=== PATIENT | female | born 1990 | race Caucasian/White ===

== ENCOUNTER 2023-01-24 08:46 | Outpatient (CLI) | payer OTHER, SELFPAY | END 2023-01-24 08:47 | disposition home or self-care (01) | LOC: NFLDREF 08:46 | PROVIDERS: Visit Provider Registered Nurse | DX: R39.15 Urgency of urination (principal) | CPT/HCPCS: 87086 ==

== ENCOUNTER 2023-02-12 13:51 | Outpatient (CLI) | payer OTHER, SELFPAY ==
--- NOTE | 2023-02-12 14:00 | CRLHL7_ITS ---
For Patients: As a result of the Century Cures Act, medical imaging exams and procedure reports are released immediately into your electronic medical record. You may view this report before your referring provider. If you have questions, please contact your health care provider. INDICATION: 32 year-old female. Pelvic pain and pelvic pressure. TECHNIQUE: Transvaginal pelvic ultrasound. Grayscale and color spectral Doppler waveform analysis of the ovaries was performed. FINDINGS: Normal-appearing uterus measuring 7.7 x 3.9 x 4.9 cm. No myometrial mass. Normal endometrial stripe of 3.3 mm. Minimal free pelvic fluid in the cul-de-sac likely physiologic. The right ovary measures 3.4 x 1.5 x 2.3 cm. Blood flow is documented in the right ovary both arterial and venous. The left ovary measures 2.1 x 1.2 x 1.9 cm. Blood flow is documented in the left ovary both arterial and venous. No ovarian torsion. Few ovarian follicles. IMPRESSION: Normal transvaginal pelvic ultrasound. Dictated by Matthew Alcantara MD @ 02/14/2023 11:25:59 AM (Electronically Signed)
== END 2023-02-12 13:52 | disposition home or self-care (01) ==
LOC: US 13:52
PROVIDERS: Visit Provider Physician Assistant
DX: R10.2 Pelvic and perineal pain (principal)
CPT/HCPCS: 76830; 76856; 93976

== ENCOUNTER 2023-07-13 15:45 | Outpatient (CLI) | payer OTHER, SELFPAY ==
--- OUTSIDE RECORDS SUMMARY | 2023-07-13 15:48 | XMS_ITS | Clinical Summary ---
Author Name Unknown Organization [facility] Address [place], [place] [address] Care Team Providers Care Cage Supervisor Name Role Phone Pcp, No Primary Care Provider Unavailabl e Allergies No known active allergies Medications Medication Sig Dispensed Refills Start Date End Date Status triamcinolone (ARISTOCORT; KENALOG) 0.1 % creamIndications:Herpe s zoster without complication Apply topically to affected area(s) 3 times daily. 80 g 08/11/2018 Active Active Problems Problem Noted Date Diagnosed Date No active medical problems 03/23/2011 Immunizations Name Administration Dates Next Due Diptheria Antitoxin 08/11/1993, 0,1988,1988, 1988 Hepatitis B (Peds) 10/26/2008,08/22/2000 Human Papilloma Virus Vaccine 04/05/2011, 010 Influenza, IIV3 (Age >=3 years) 02/16/2010,02/25 MMR 08/22/2000,07/06/1989 Polio Virus, Unspecified 08/11/1993,09/10/1989,0 1988,1988 Td (Age >=7 Years) 11/18/2003 Tdap 02/26/2008 Social History Tobacco Use Types Packs/Day Years Used Date Smoking Tobacco: Former Cigarettes Q uit: 08/26/2010 Smokeless Tobacco: Never Alcohol Use Standard Drinks/Week Comments Yes 0 (1 standard drink = 0.6 oz pur e alcohol) occasionally Sex and Gender Information Value Date Recorded Sex Assigned at Not on file Gender Identity Not on file Sexual Orientation Not on file Obstetrics History Last Filed Vital Signs Vital Sign Reading Time Taken Comments Blood Pressure 124/64 08/11/2018 2:45 PM CDT Pulse 71 08/11/2018 2:45 PM CDT Temperature 36.6 ??C (97.8 ??F) 08/11/2018 2:45 PM CD T Respiratory Rate 16 08/11/2018 2:45 PM CDT Oxygen Saturation 98% 08/11/2018 2:45 PM CDT Inhaled Oxygen Concentration - - Weight 81.6 kg (180 lb) 08/11/2018 2:45 PM CDT Height 170.2 cm (5' 7) 09/04/2016 11:33 AM CDT Body Mass Index 28.19 09/04/2016 11:33 AM CDT Plan of Treatment Health Maintenance Due Date Last Done Comments HIV for age 15-65 02/23/2003 Hepatitis C screening for age 18-79 02/23/2006 Depression screening for age 12+ 03/30/2017 03/30/2016 BMI (ht and wt on same day) for age 18+ 09/04/2017 09/04/2016, 03/30/2016 Tetanus booster 02/25/2018 02/26/2008, 11/18/2003 COVID-19 vaccine series (2022-24 season) 2022 Pap test for age 21-65 06/01/2023 , 05/31/2020, 08/10/2017, Additional history exists Influenza for age 9-49 11/18/2023 02/16/2010, 2007 Tdap Completed 02/26/2008 Pneumococcal series for age 6-64 Aged Out No longer eligible based on patient's age to complete this topic Procedures Procedure Name Priority Date/Time Associated Diagnosis Comments BILINGUAL SALES CONSULTANT THIN PREP PAP SCREEN IMAGED Routine 05/31/2020 10:00 AM CDT from Last 3 Months or Most Recently Relevant to Health Maintenance Results * BILINGUAL SALES CONSULTANT THIN PREP PAP SCREEN IMAGED (05/31/2020 10:00 AM CDT) Case Report Gynecologic Cytology Report ? Case: [id number] ? Authorizing Provider: ??Marissa Billings ??Collected: ? 05/31/2020 1000 ? M, MD ? Ordering Location: ? [facility] ?Received: ?06/01/2020 1400 ? First Screen: ?Ayana Arce ? Specimen: ?BILINGUAL SALES CONSULTANT ThinPrep Vial Screening, Cervical/Vaginal ? 06/08/2020 6:48 PM CDT [facility] INTERPRETATION/ RESULT NEGATIVE FOR INTRAEPITHELIAL LESION OR MALIGNANCY (NIL) (none) 06/08/2020 6:48 PM CDT [facility] NISM(S) Shift in veronika suggestive of bacterial vaginosis 06/08/2020 6:48 PM CDT [facility] SPECIMEN ADEQUACY Satisfactory for evaluation Endocervical component present 06/08/2020 6:48 PM CDT [facility] HPV REQUEST HPV and PAP 06/08/2020 6:48 PM CDT [facility] Date of LMP 03/25/2020 06/08/2020 6:48 PM CDT [facility] Last Pap Date 08/21/2017 06/08/2020 6:48 PM CDT [facility] Last Pap Result NIL 6:48 PM CDT [facility] Menstrual Status 06/08/2020 6:48 PM CDT [facility] Additional Information 06/08/2020 6:48 PM CDT [facility] Comment: Interpreted at [facility] - [address], [place] [address] Automated Review Successful 06/08/2020 6:48 PM CDT [facility] Comment:Specimen processed s uccessfully by automated melt house supervisor device, ThinPrep Imaging System, [employer] ANCILLARY TESTING BILINGUAL SALES CONSULTANT HPV Ordered, Please see separate report 06/08/2020 6:48 PM CDT [facility] Note The pap test is a screening technique, not a diagnostic procedure. It is used primarily to screen for squamous cancers and precursor lesions. Published studies have shown that it is subject to both false negative and false positive results. The pap test should not be used as the sole means to diagnose or exclude pre-malignant and malignant lesions. 06/08/2020 6:48 PM CDT [facility] Other (Cervical/Vagina l) 05/31/2020 10:00 AM CDT 06/01/2020 2:00 PM CDT Marissa Billings MD PATHOLOGY/ CYTOLOGY [facility] [address] [place] [address], [place] from Last 3 Months or Most Recently Relevant to Health Maintenance Care Teams Cage Supervisor Relationship Specialty Start Date End Date Pcp, No . PCP - General 06/01/10
[2023-07-13 18:53] LABS: Chlamydia DNA Amplified* NOT DETECTED (No Detected); GC DNA Amplified* NOT DETECTED (No Detected)
== END 2023-07-13 15:46 | disposition home or self-care (01) ==
PROVIDERS: Visit Provider Obstetrics & Gynecology
DX: Z11.3 Encounter for screening for infections with a predominantly sexual mode of transmission (principal); Z13.1 Encounter for screening for diabetes mellitus; Z13.220 Encounter for screening for lipoid disorders
CPT/HCPCS: 80061; 82947; 87491; 87591

== ENCOUNTER 2023-10-02 15:05 | Outpatient (CLI) | payer OTHER, SELFPAY ==
--- OUTSIDE RECORDS SUMMARY | 2023-10-02 15:08 | XMS_ITS | Patient Health Record ---
Author Organization [facility] Address [address] [place], [place] [id number] Care Team Providers Care Grease Packer Name Role Phone Nuha Bowens Primary Care Provider Unavail Josselin Berg Unavailable [phone] Allergies No Known Allergies Results Component Value Reference Range Notes BD Affirm Reviewed date:04/11/2023 02:44:14 PM Interpretation:Abnormal Performing Lab: Notes/Report: Abnormal Trichomoniasis NEG Negative - Bacterial Vaginosis POS Negative - Yeast NEG Negative - CULTURE, URINE, ROUTINE Reviewed date:02/19/2023 10:59:12 AM Interpretation:Normal Performing Lab:[facility], [facility] [id number] Yoandy Ng Notes/Report: CULTURE, URINE, ROUTINE SEE NOTE CULTURE, URINE, ROUTINE Micro Number: [id number] Test Status: Final Specimen Source: Urine, clean catch Specimen Quality: Adequate Result: No Growth BV/VAGINITIS PANEL DNA PROBE Reviewed date:02/19/2023 10:59:12 AM Interpretation:Abnormal Performing Lab:[facility], [facility], [id number] Yoandy Ng Notes/Report: TRICHOMONAS: NOT DETECTED NOT DETECTED GARDNERELLA: DETECTED NOT DETECTED in the absence of signs and symptoms of bacterial vaginosis. Increased levels of G. vaginalis may not be significant SYED: NOT DETECTED NOT DETECTED Urinalysis, Routine () Reviewed date:02/16/2023 04:10:19 PM Interpretation: Performing Lab: Notes/Report: Urine Color Yellow Yellow - Ifeoma Appearance Clear Clear - Glucose Neg Bilirubin Neg Ketone Neg Specific Basom 1.020 Blood Neg pH 5.5 Protein Neg Urobilinogen 0.2mg/dL Nitrite Neg Leukocytes Neg Reason For Referral Reason Referral for Urgency of Urination Sched 12.01 Diagnosis 1 Urgency of urination (R39.15) Referral Organization [facility] Referring Provider First Name Nuha Referring Provider Last Name Gogo Referring Provider Speciality Nurse Veto valera Referred Organization [facility] Referred Provider Josselin Rosas Referred Address [address] [place], [place],[address], Referred Provider Specialty Refuse Laborer and core man General Notes Daryl, Kaye 09:21:17 AM > Received referral from [facility] for Urgency of Urination Referral Priority Routine Medications Medication SIG (Take, Route, Frequency, Duration) Notes Start Date End Date Status Trimo-Murphy 0.025-0.01 % 2 gram Vaginal tw ice weekly for 90 days 04/10/2023 Active Clindamycin Phosphate 2 % 1 applicatorfu l at bedtime Vaginal Once a day for 7 days 04/11/2023 Active Social History Tobacco Use: Social History Observation Description Date Details (start date - stop date) Never Smoker NA - NA Tobacco Use/Smoking Question Answer Notes Are you a nonsmoker Alcohol Screen (Audit-C) Question Answer Notes Did you have a drink containing alcohol in the p ast year? Yes Points 0 Interpretation Negative Problems Problem Type SNOMED Code ICD Code Onset Dates Problem Status W/U Status Risk Notes Problem 215946330 Pessary maintenance (Z46.89) Active confirmed Problem 895639147 Fitting and adjustment of pessary (Z46.89) Active confirmed Problem 051374150 POP-Q stage 2 cystocele (N81.10) Active confirmed Problem 306642909 POP-Q stage 2 rectocele (N81.6) Active confirmed Problem Urinary frequency (057047969) Urinary frequency (R35.0) Active confirmed Improved 75-80% after treatment for bacterial vaginosis Problem 94818563 YVAN (stress urinary incontinence, female) (N39.3) Active confirmed Vital Signs Blood pressure diastolic 82 mm Hg 04/10/2023 Height 67 in 04/10/2023 Blood pressure systolic 118 mm Hg 04/10/2023 Weight 190.2 lbs 04/10/2023 BMI 29.79 kg/m2 04/10/2023 Encounters Encounter Location Date Provider Diagnosis [facility] [address] [place] [address] 02/16/2023 [facility] Vaginal discharge N89.8 and Urinary frequency R35.0 [facility] [address] [place] [address] 04/10/2023 [facility] Vaginal irritation N89.8 [facility] [address] [place] [address] 02/16/2023 [facility] POP-Q stage 2 cystocele N81.10 ; POP-Q stage 2 rectocele N81.6 ; Urinary frequency R35.0 ; Vaginal discharge N89.8 and Mild depression F32.A [address] [place] [address] 03/20/2023 [facility] Fitting and adjustme nt of pessary Z46.89 ; POP-Q stage 2 cystocele N81.10 and POP-Q stage [address] [address] 04/10/2023 [facility] Pessary maintenance Z46.89 and Vaginal discharge N89.[address] [place] [id number] 02/16/[address] [place] [id number] 04/10/[address] [address] 04/09/2023 [facility] [address] [place] [place] [phone] 04/10/[address] [address] 06/25/2023 [facility] Assessments Encounter Date Diagnosis (ICD Code) Assessment Notes Treatment Notes Treatment Clinical Notes 02/16/2023 Vaginal discharge (ICD-10 - N89.8) 03/20/2023 Fitting and adjustment of pessary (ICD-10 - Z46.89) Today pessary was placed for management of prolapse. Attempted to place a dish with incontinence knob but was too short for length of vagina. Oval pessary is more appropriate for Sophia. We discussed it does not have incontinence knob. YVAN is rare for her. Priority is POP which current pessary supports. She was unable to remove today. She was able to insert independently. Recommend she trial pessary at home over the next 1-2 weeks. If she is unable to remove at home she will follow-up in 1-2 weeks, and we will reassess the plan of care. If able to remove at home follow-up in 1 month to ensure tolerating, helping symptoms and no issues with the pessary. We reviewed vaginal discharge is common, she should call if she has vaginal bleeding She may need vaginal estrogen to keep the vaginal tissues healthy or use Trimo-Murphy to prevent vaginal discharge from becoming bothersome. Discussed pessary care. All questions answered Pessary handout given 03/20/2023 POP-Q stage 2 cystocele (ICD-10 - N81.10) See plan under Fitting and adjustment of pessary 04/10/2023 Pessary maintenance (ICD-10 - Z46.89) Doing well with pessary Advised on indications to contact our office including urinary incontinence, vaginal discharge with odor or itching, vaginal bleeding. Recommend Trimo-murphy to minimize vaginal infections. Rx sent. Follow-up in 3 months 04/10/2023 Vaginal discharge (ICD-10 - N89.8) BD Affirm taken and sent to lab. Will contact patient with results. If Rx is necessary will send to pharmacy of patients choice. Currently does not meet criteria for recurrent vaginitis. Patient inquired if it is ok to use OTC boric acid if she starts to get BV symptoms. Discussed this is ok and to follow OTC directions 04/10/2023 Vaginal irritation (ICD-10 - N89.8) 02/16/2023 POP-Q stage 2 cystocele (ICD-10 - N81.10) Today we reviewed the findings on exam of stage 2 cystocele or anterior vaginal wall prolapse. The prolapse is bothersome for her. We reviewed the findings on exam with diagrams. We specifically discussed potential impact of cystocele on bladder function including urgency, feeling of incomplete emptying. We also reviewed correction of the cystocele may results in the development or worsening of occult stress incontinence due to unmasking of any urethral weakness without the kink in the urethra from the prolapse. In regard to treatment we discussed management for cystocele to include: expectant management/no treatment, pelvic floor rehab (Urostym or PT), pessary, and surgery. As I am not involved in surgical consultation, she will need to schedule appointment with Dr. Small for further discussion should she desire. If patient desires surgical consult she will require urodynamic testing due to history of stress urinary incontinence. After discussion, she desires to proceed with: Vaginal pessary fitting. She will also start pelvic floor physical therapy in [place] 02/16/2023 POP-Q stage 2 rectocele (ICD-10 - N81.6) See plan under POP-Q stage 2 cystocele 02/16/2023 Urinary frequency (ICD-10 - R35.0) 02/16/2023 Urinary frequency (ICD-10 - R35.0) Patient reports urinary frequency (voids 15 times + per day). On exam, large amount of clear watery foul smelling discharge present. Vaginal discharge is consistent with bacterial vaginosis. We discussed that vaginal infections can contribute to urinary frequency. Plan is to treat patient for bacterial vaginosis today. Precription sent for metrogel. BD affirm collected. Will contact patient with result. If urinary frequency does not improve with treatment of vaginal discharge, recommend bladder evaluation for overactive bladder. Evaluation would include urodynamic testing, and voiding diary with follow-up to discuss treatment options. Urinalysis today normal. Urine culture sent to rule out urinary tract infection. Plan based on result. Patient verbalized understanding and is in agreement with this plan 03/20/2023 POP-Q stage 2 rectocele (ICD-10 - N81.6) See plan under Fitting and adjustment of pessary 02/16/2023 Vaginal discharge (ICD-10 - N89.8) See plan under Urinary frequency 02/16/2023 Mild depression (ICD-10 - F32.A) PHQ-9 consistent with mild depression. Plan to rescreen in 1 year 02/16/2023 Other Time spent on patient care including - review of previous records - preparation for visit - ordering medications, labs or imaging - documenting visit - discussion of care with another health rn urgent care if indicated - direct face to face time with patient including obtaining relevant history, physical exam and discussion of plan of care Total time was 60 minutes spent including some or all of above listed required for care of patient talking about diagnosis, treatment and plan of care with the patient as listed in the treatment portion of the note 03/20/2023 Other 04/10/2023 Other Time spent on patient care including - review of previous records - preparation for visit - ordering medications, labs or imaging - documenting visit - discussion of care with another health rn urgent care if indicated - direct face to face time with patient including obtaining relevant history, physical exam and discussion of plan of care Total time was 30 minutes spent including some or all of above listed required for care of patient talking about diagnosis, treatment and plan of care with the patient as listed in the treatment portion of the note Plan Of Treatment No Information Insurance Providers Payer Name Payer Address Payer Phone Subscriber Number Group Number Insured Name Patient Relationship to Insured Coverage Start Date Coverage End Date [facility] Commercial (Ins. Bill) [address] [address] [place], [place] [id number] Sophia Martinez Self - patient is the insured Medical (General) History Medical History History ICD Code Bladder infections stress urinary incontinence
--- OUTSIDE RECORDS SUMMARY | 2023-10-02 15:08 | XMS_ITS | Clinical Summary ---
Author Organization [facility] Address [place], [place] [address] Care Team Providers Care Solar Design Engineer Name Role Phone Pcp, No Primary Care [...] Procedure Name Priority Date/Time Associated Diagnosis Comments ESOL INSTRUCTOR THIN PREP PAP SCREEN IMAGED Routine 05/31/2020 10:00 AM CDT from Last 3 Months or Most Recently Relevant to Health Maintenance Results * ESOL INSTRUCTOR THIN PREP PAP SCREEN IMAGED (05/31/2020 10:00 AM CDT) Case Report Gynecologic Cytology Report ? Case: [id number] ? Authorizing Provider: ??Marissa Billings ??Collected: ? 05/31/2020 1000 ? M, MD ? Ordering Location: ? [facility] ?Received: ?06/01/2020 1400 ? First Screen: ?Ayana Arce ? Specimen: ?ESOL INSTRUCTOR ThinPrep Vial Screening, Cervical/Vaginal ? 06/08/2020 6:48 PM CDT [facility] INTERPRETATION/ RESULT NEGATIVE FOR INTRAEPITHELIAL LESION OR MALIGNANCY (NIL) (none) 06/08/2020 6:48 PM CDT [facility] NISM(S) Shift in veronika suggestive of bacterial vaginosis 06/08/2020 6:48 PM CDT [facility] SPECIMEN ADEQUACY Satisfactory for evaluation Endocervical component present 06/08/2020 6:48 PM CDT [facility] HPV REQUEST HPV and PAP 06/08/2020 6:48 PM CDT [facility] Date of LMP 03/25/2020 06/08/2020 6:48 PM CDT [facility] Last Pap Date 08/21/2017 06/08/2020 6:48 PM CDT [facility] Last Pap Result NIL 6:48 PM CDT [facility] Menstrual Status 06/08/2020 6:48 PM CDT [facility] Additional Information 06/08/2020 6:48 PM CDT [facility] Comment: Interpreted at [facility] [email or web address] [facility] - [address], [place] [address] Automated Review Successful 06/08/2020 6:48 PM CDT [facility] Comment:Specimen processed s uccessfully by automated transitional nurse device, ThinPrep Imaging System, [employer] ANCILLARY TESTING ESOL INSTRUCTOR HPV Ordered, Please see separate report 06/08/2020 6:48 PM CDT [facility] Note The pap test is a [...] and malignant lesions. 06/08/2020 6:48 PM CDT [facility] Other (Cervical/Vagina l) 05/31/2020 10:00 AM CDT 06/01/2020 2:00 PM CDT Marissa Billings MD PATHOLOGY/ CYTOLOGY [facility] [address] [place] [address], [place] from Last 3 Months or Most Recently Relevant to Health Maintenance Care Teams Solar Design Engineer Relationship Specialty Start Date End Date Pcp, No . PCP - General 06/01/10
--- NOTE | 2023-10-02 15:20 | CRLHL7_ITS ---
For Patients: As a result of the Century Cures Act, medical imaging exams and procedure reports are released immediately into your electronic medical record. You may view this report before your referring provider. If you have questions, please contact your health care provider. BILATERAL SCREENING MAMMOGRAM WITH COMPUTER-AIDED DETECTION AND TOMOSYNTHESIS TECHNIQUE: CC and MLO views were obtained. These mammographic images have been obtained using full-field digital technique. These mammographic images were interpreted with the benefit of computer-aided detection. Breast Tomosynthesis was used in this interpretation. COMPARISON FILM: Baseline. FINDINGS: There are scattered areas of fibroglandular density. IMPRESSION: There is no radiographic evidence for malignancy. ASSESSMENT: BI-RADS Category 2: Benign RECOMMENDATION: Routine screening mammogram in 1 year. A lay language report of this examination will be provided to the patient. Micheal Stanford M.D. Diagnostic Radiologist [email or web address] SP/Dictated by: Micheal Stanford MD @ 10/03/2023 9:53:00 AM (Electronically Signed)
== END 2023-10-02 15:06 | disposition home or self-care (01) ==
LOC: MAMMO 15:06
PROVIDERS: Visit Provider Obstetrics & Gynecology
DX: Z12.31 Encounter for screening mammogram for malignant neoplasm of breast (principal); Z80.3 Family history of malignant neoplasm of breast
CPT/HCPCS: 77063; 77067